=== PATIENT | female | born 1975 | race Caucasian/White ===

== ENCOUNTER → 2017-01-03 | Outpatient (CLI) | payer OTHER ==
[~2017-01-03] VITALS: Ht 147.3 cm; Wt 90.7 kg
[~2017-01-03] MED LIST: ADVIL200 MG PO; CLARINEX5 MG PO; SINGULAIR10 MG PO
== END | disposition home or self-care (01) ==
LOC: AMB 08:00
DX: K29.70 Gastritis, unspecified, without bleeding (principal); R11.2 Nausea with vomiting, unspecified; R01.1 Cardiac murmur, unspecified; Z86.19 Personal history of other infectious and parasitic diseases; Z90.49 Acquired absence of other specified parts of digestive tract; Z80.0 Family history of malignant neoplasm of digestive organs; Z88.2 Allergy status to sulfonamides; Z88.8 Allergy status to other drugs, medicaments and biological substances; Z91.041 Radiographic dye allergy status
CPT/HCPCS: 88305; 88342 TC; C1726; J2250